=== PATIENT | male | born 1965 | race Caucasian/White ===

== ENCOUNTER 2017-09-26 23:35 | Inpatient (IN) | payer OTHER ==
[2017-09-26] MEDS ORDERED: Heparin 25,000 units/D5W 500 ML IV SCH (23:45)
[2017-09-26] MEDS ORDERED: Heparin 10,000 UNITS/1 ML VIAL ONE (23:51)
[2017-09-26] MEDS ORDERED: Morphine 10 MG/ML VIAL ONE (23:51)
--- NOTE | 2017-09-26 23:53 | RAD ---
CHEST ONE VIEW: History: Chest pain. FINDINGS: Cardiac silhouette is magnified by projection. Pulmonary vasculature is upper limits of normal. Medi astinum is midline. There is no confluent airspace consolidation or evidence of pneumothorax. Cardia c monitor leads overlie the chest. IMPRESSION: No active cardiopulmonary abnormalities are demonstrated. POS: [facility]
[2017-09-26 23:54] LABS: #Eosinphils 0.3 thou/uL (0.0-0.7); #Lymphocytes 3.5 thou/uL (1.20-3.40); #Monocytes 0.6 thou/uL (0.11-0.59); #Neutrophils 4.9 thou/uL (1.40-6.50); %Basophils 0.5 % (0.0-1.0); %Eosinophils 3.2 % (0.0-10.0); %Lymphocytes 37.7 % (21.0-51.0); %Monocytes 6.8 % (0.0-10.0); Hematocrit 42.7 % (42.0-52.0); Mean Platelet Volume 7.8 fL (7.4-10.4); White Blood Cell (WBC) Count 9.4 thou/uL (4.8-10.8)
[2017-09-27 00:12] LABS: Troponin I 0.028 ng/mL (< 0.028)
[2017-09-27 00:23] LABS: ALT (SGPT) 31 U/L (8-55); AST (SGOT) 35 U/L (5-34); Alkaline Phosphatase 100 U/L (40-150); Anion Gap 16 mmol/L (10-20); BUN (Urea Nitrogen) 19 mg/dL (8.9-20.6); Bilirubin, Total 0.2 mg/dL (0.2-1.2); CK (CPK) 248 U/L (30-200); Calc. Creatinine Clearance 0 mL/min (70-130); Calcium 9.3 mg/dL (7.8-10.44); Carbon Dioxide 17 mmol/L (22-29); Chloride 107 mmol/L (98-107); Estimated GFR-MDRD 78; Globulin 4.3 g/dL (2.4-3.5); Lipase 146 U/L (8-78); Protein, Total 8.3 g/dL (6.0-8.3)
[2017-09-27] MEDS ORDERED: Heparin 10,000 UNITS/1 ML VIAL ONE (01:01)
[2017-09-27] MEDS ORDERED: Fentanyl 100 MCG/2 ML VIAL ONE (01:02)
[2017-09-27] MEDS ORDERED: Clopidogrel Bisulfate 300 MG TAB ONE (01:36)
[2017-09-27] MEDS ORDERED: Sodium Chloride 0.9% 1,000 ML IV SCH (01:45)
[2017-09-27] MEDS ORDERED: Nitroglycerin 50 MG/250 ML BOT 250 ML IVPB PRN (02:16)
[2017-09-27 02:29] VITALS: BMI 30.3
[2017-09-27] MEDS: Morphine 4 MG/ML Carpuject SLOW IVP PRN ×4 (03:39→16:51)
--- NOTE | 2017-09-27 04:31 | HP ---
HISTORY OF PRESENT ILLNESS: Justyn Rider is a 51-year-old white male who apparently had myocardial infarction in [place] in 10/2015, underwent four stent placements in the LAD, diagonal system. He then had a myocardial infarction here in 10/2016 with total occlusion of the right coronary artery, underwent a placement of a drug-eluting stent-Synergy 2.75 x 28 mm. Then, in 12/2016, he apparently fell off a ladder, striking his head. He had intracranial bleed and had to undergo craniotomy and his Plavix was discontinued. He states that he occasionally has chest discomfort, but is very vague about that. Tonight at 9: 00 p.m., he had onset of severe chest pressure and in the emergency room and was found to have inferoposterior infarction. PAST MEDICAL HISTORY: Hypertension, hypercholesterolemia. No history of diabetes. intracranial hemorrhage. coronary artery disease with myocardial infarctions. MEDICATIONS: Medications at this time are unknown. He states that he takes an aspirin 325 daily and metoprolol is all he recalls. ALLERGIES: None. OPERATIONS: Craniotomy, placement of inferior vena cava filter for lower extremity deep venous thrombosis and multiple ORIFs. Coronary stent placement. SOCIAL HISTORY: He smoked 1 pack per a day. Does not drink. FAMILY HISTORY: Father had myocardial infarction, his first myocardial infarction at age 32 and at age 42 with infarction. REVIEW OF SYSTEMS: Otherwise, unremarkable. PHYSICAL EXAMINATION: VITAL SIGNS: Blood pressure 130/80, pulse 80, sinus rhythm on the monitor. HEENT: PERRL. NECK: Supple. CHEST: Clear. CARDIAC: S1 and S2 are normal without any S3, S4, or murmurs. ABDOMEN: Normal bowel sounds without tenderness. Abdomen is obese. EXTREMITIES: Revealed no clubbing, cyanosis, or edema. NEUROLOGIC: Grossly intact. SKIN: Warm and dry. LABORATORY AND DIAGNOSTIC DATA: EKG reveals inferoposterior infarction with ST elevation in II, III, aVF, and ST segment depression across the precordial leads. CBC is unremarkable. Sodium 135, potassium 4.6, chloride 107, carbon dioxide 17, BUN 19, creatinine 1.01, glucose 122. Troponin I 0.028. IMPRESSION: 1. Acute inferoposterior ST-elevation myocardial infarction. 2. History of myocardial infarction in 10/2015 with placement of stents in the diagonal and LAD in [place]. 3. ST-elevation myocardial infarction in 10/2016 here with placement of stent, drug-eluting in the proximal right coronary artery. 4. History of intracranial hemorrhage with craniotomy performed in [place] and Plavix was discontinued. 5. Hypertension. 6. Hypercholesterolemia. 7. Patient continues to smoke. 8. Positive family history. PLAN: The situation was discussed with the patient's . It was recommended he undergo emergent catheterization. Risks of this were discussed including , myocardial infarction, dye reaction, vascular injury, CVA, transfusion, limb loss, renal loss, etc. We also discussed the possibility of intracranial hemorrhage with the anticoagulants that need to be given. Risks of stent placement were discussed including , myocardial infarction, emergent CABG, restenosis, stent thrombosis, vessel perforation, etc. With his history of intracranial hemorrhage, I would only place a bare metal stent. EVELINA
[2017-09-27 07:27] LABS: Cholesterol 173 mg/dl (< 200 Desired)
[2017-09-27 07:55] LABS: Troponin I 53.472 ng/mL (< 0.028)
[2017-09-27] MEDS ORDERED: FLU VACC QS2017-18 36 mo. & older 0.5 ML SYRINGE IM ONE (09:00)
[2017-09-27] MEDS: Clopidogrel Bisulfate 75 MG TAB PO SCH (09:25)
--- NOTE | 2017-09-27 11:32 | CON ---
DATE OF CONSULTATION: 09/27/2017 HISTORY OF PRESENT ILLNESS: This is a 51-year-old gentleman with previous stents about 2 years ago to the LAD and circumflex system in [place], [place]. Last October, he underwent stenting for an ac atka occlusion of the right coronary artery with a minimal troponin bump. In December, he fell off a ladder with a closed head injury ultimately having a skull flap raced and then infectious complicat ions such that his skull could not be replaced. He states he was scheduled to have this, finally re paired this week prior to his being admitted last night for an acute myocardial infarction. The pat ient evidently had his antiplatelet agents stopped in December and had an IVC filter placed. He als o had a statin stopped. Unfortunately, the patient has enough residual from his brain trauma that I am not quite sure how reliable his information is. He was evidently on aspirin and metoprolol at h ome. He presented last night with an acute inferior posterior NM by EKG and was found to have subto farooq occlusion of the distal circumflex system that branched into 2 sizeable vessels. This was stent ed with Plavix loading and using a bare metal stent. The right coronary artery was chronically occl uded proximally and filled from left to right collaterals. LAD had a stenosis in the ostium of the LAD of about 70% as well as the diagonal with a 70% lesion and ramus with 70% lesion. Ejection frac tion could not be calculated as no LV gram was done. Echo is pending. PAST MEDICAL HISTORY: Includes hypertension, dyslipidemia, and longstanding smoking history which t he patient has continued to the present time. 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 FAMILY HISTORY: Positive for male family members with early heart disease. ALLERGIES: None known. PHYSICAL EXAMINATION: GENERAL: Alert, cooperative gentleman. He seems to confabulate when he answers questions. NECK: No carotid bruits. The patient has an area on the left frontoparietal area with a defect in his skull with intact skin and hair. CARDIAC: Heart rate 80. No murmurs. LUNGS: Clear anteriorly. Chest x-ray clear. ABDOMEN: Obese, soft, nontender, no masses, bruits or aneurysm. EXTREMITIES: He has palpable left posterior tibial pulse and a right dorsalis pedis pulse with no p eripheral edema. Radial pulses are intact. ASSESSMENT AND PLAN: The patient may benefit from a bypass to the right coronary artery, left anter ior descending, diagonal, and possibly ramus. Timing of the surgery, however, is up in the air at t his point with a sizable myocardial infarction overnight, loading dose of Plavix for bare metal sten t and unknown ventricular function.
--- NOTE | 2017-09-27 12:01 | PDOC.CTH ---
Cardiology Progress Note - Subjective No pain reported. Films reviewed from STEMI this morning with Dr. Hyman. Patient not a good historian. Awaiting echo results to assess LV function. Discussed case with Dr. Ramirez. ROS otherwise negative. - Objective Vital Signs Temp Pulse Resp Pulse Ox 09/27/17 08:00 97.8 F 09/27/17 07:55 97.8 F 85 18 99 09/27/17 05:00 98.4 F 09/27/17 02:30 97.8 F 87 20 100 Admit Weight 242 lb 8.136 oz Weight 242 lb 8.136 oz 09/26/17 09/27/17 09/28/17 06:59 06:59 06:59 Intake Total 38 530 Output Total 1250 400 Balance -1212 130 - Physical Examination General/Neuro: alert & oriented x3, NAD Neck: carotid US brisk, no JVD present Lungs: CTA, unlabored respirations Heart: PMI normal, RRR Abdomen: no HSM, NT/ND, soft Extremities: other: (2+ pulses, no edema) Other PE findings: Neuro: no focal motor defs; mentation slow - Telemetry Telemetry Rhythm: sinus rhythm - Labs Result Diagrams: 09/26/17 23:38 09/26/17 23:38 Troponin/CKMB CK-MB (CK-2) 243.4 ng/mL (0-6.6) H* 09/27/17 06:53 Troponin I 53.472 ng/mL (< 0.028) H* 09/27/17 06:53 - Assessment/Plan 1. CAD, s/p STEMI: PCI of LCx successful. RCA occluded at proximal edge of prior stent. Echo pending. Meds reloaded. Titrate as tolerated. Will evaluate for potential CABG in future. I am not sure that he is the best candidate given his cognitive deficits s/p craniotomy. 2. HTN: controlled. Monitor. 3. dyslipidemia: statin therapy for life recommended.
[2017-09-27 12:51] LABS: Critical Call CKMBM RESULT DECREASING; Critical Call Chem Troponin I RESULT DECREASING; Troponin I 44.347 ng/mL (< 0.028)
[2017-09-27] MEDS ORDERED: Iopamidol 370 76% 100 ML VIAL ONE (14:12)
[2017-09-27] MEDS ORDERED: Iopamidol 370 76% 50 ML VIAL FS ONE (14:12)
--- NOTE | 2017-09-27 16:45 | CON ---
DATE OF CONSULTATION: 09/27/2017 HISTORY OF PRESENT ILLNESS: Mr. Rider is a 51-year-old male. He says the last 2 years as he got close to [place], he would have a cardiac event and has been in the hospital having stents placed. He presented this admission early this morning with severe chest discomfort similar to past events. He subsequently has been admitted to the ICU. PAST MEDICAL HISTORY: Remarkable for, 1. Four coronary stents placed in 10/2015 and a stent placed in his right coronary in 10/2016 here and 12/2016, he fell off a ladder which led to a craniotomy. His antiplatelet drugs were discontinued. 2. History of hypertension. 3. History of lipid disorder. 4. He has a history of an inferior vena cava filter placement. 5. History of multiple orthopedic surgeries. FAMILY HISTORY: Family history of heart disease at an early age. His father in his 40s with an DC and had his first DC in his 30 and is a smoker, nondrinker. PHYSICAL EXAMINATION: GENERAL: He is in no distress. VITAL SIGNS: Blood pressure 140/93, heart rate 91, respiratory rate 22, oximetry is 90 on room air. HEAD AND NECK: Unremarkable. LUNGS: Clear. HEART: Regular rhythm. S1 and S2 are normal. ABDOMEN: Soft and nontender. EXTREMITIES: Without asymmetry. LABORATORY DATA: Sodium 135, potassium 4.6, chloride 107, bicarbonate 17, BUN 19, creatinine 1.01. White count 9.4, hemoglobin 14.9, platelets 226. IMPRESSION: 1. Status post emergent cardiac catheterization. Dr. Ramirez has been consulted. 2. History of inferior vena cava filter. 3. History of multiple coronary procedures in the past. 4. History of multiple orthopedic procedures in the past. We have to follow with the physicians caring for him. Critical care time 40 min. VEENAD
[2017-09-27 18:58] LABS: Critical Call CKMBM RESULT DECREASING; Critical Call Chem Troponin I RESULT DECREASING; Troponin I 30.053 ng/mL (< 0.028)
[2017-09-27] MEDS ORDERED: HYDROcodone/Acetaminophen 5/325 mg Tablet PO PRN (19:47)
[2017-09-27] MEDS: HYDROcodone/Acetaminophen 5/325 mg Tablet PO PRN (20:09)
[2017-09-27] MEDS: Atorvastatin Calcium 40 MG TAB PO SCH (20:09)
[2017-09-27] MEDS: Metoprolol Tartrate 25 MG TAB PO SCH (20:10)
--- NOTE | 2017-09-27 21:07 | EKG ---
Test Reason : POST CATH Blood Pressure : / mmHG Vent. Rate : 080 BPM Atrial Rate : 080 BPM P-R Int : 178 ms QRS Dur : 114 ms QT Int : 394 ms P-R-T Axes : 053 010 068 degrees QTc Int : 454 ms Normal sinus rhythm Abnormal ECG When compared with ECG of 01-NOV-2016 06:43, ST elevation now present in Inferior leads Nonspecific T wave abnormality now evident in Inferior leads Confirmed by ARI RANGEL, SAlejandro (4) on 09/27/2017 9:07:01 PM Referred By: Chloe MONIQUE Confirmed By:DR. Angel CHAPMAN MD
--- NOTE | 2017-09-27 21:37 | CCL ---
PROCEDURE: Coronary arteriography. Attempted intervention of the right coronary artery, stent placement in the circumflex. INDICATION: Inferoposterior STEMI. Patient was brought to cardiac catheterization lab from the emergency room. The right groin was prepped and draped in usual fashion. 1% lidocaine was infiltrated. A 6 Serbian sheath was placed into the right femoral artery. A 6 Serbian right 4 guide catheter was inserted since the patient 11 months ago had placement of a stent in the right coronary artery. This was found to be totally occluded at the proximal stent. A floppy choice wire would not cross this area. Attempts were made to cross with a mailman as well as a Whisper wire ; however, nothing would cross. A 1.2 mm balloon was placed area and dilated to attempt to open a channel; however, this still totally occluded. Also attempt was made with the [place] catheter and no clot was aspirated from the proximal portion of the stent. It was felt this possibly represented chronic total occlusion. Right 4 guide was removed and a 6 Serbian left 4 diagnostic catheter was inserted for left coronary arteriography. This was then removed and the 6 Serbian left 4 guide catheter was inserted. An extra support wire was advanced into the distal third obtuse marginal. The area was predilated with an Emerge 3.0 x 15 mm balloon. Rebel 3.5 x 24 mm stent was then positioned and deployed prior to the bifurcation of the third marginal from the remainder of the circumflex. Final result was excellent. Sheaths were sutured in place. During the procedure, patient received intravenous heparin for a goal of an ACT greater than 300. He also received Plavix 600 mg p.o., and fentanyl 25 mg IV. RESULTS: Coronary arteriography. 1. The right coronary was totally occluded proximally and this was unable with multiple wires and it was felt to be chronic total occlusion. The distal right coronary artery filled retrograde from the left. 2. Left main had a 40% stenosis. 3. The LAD had a 60-70% mid stenosis just proximal to the LAD stent. There was a 70% lesion in a high diagonal. The larger diagonal had a stent in place with a 70% stenosis. 4. The circumflex had a 99% mid to distal stenosis. INTERVENTION RESULTS: The right coronary was totally occluded and could not be opened. The mid to distal circumflex initially lesion was 99% and final lesion 0%. IMPRESSION: 1. Three-vessel coronary artery disease. 2. Chronic total occlusion of the right coronary artery. 3. Stent placed in the mid to distal circumflex. MTDD
[2017-09-28] MEDS: Morphine 4 MG/ML Carpuject SLOW IVP PRN ×2 (00:27→08:01)
[2017-09-28] MEDS: HYDROcodone/Acetaminophen 5/325 mg Tablet PO PRN ×3 (03:29→20:26)
[2017-09-28 03:59] LABS: #Eosinphils 0.1 thou/uL (0.0-0.7); #Monocytes 0.5 thou/uL (0.11-0.59); #Neutrophils 5.8 thou/uL (1.40-6.50); %Basophils 0.1 % (0.0-1.0); %Lymphocytes 23.6 % (21.0-51.0); %Monocytes 6.4 % (0.0-10.0); Hematocrit 45.9 % (42.0-52.0); Mean Platelet Volume 7.7 fL (7.4-10.4); Red Blood Cell (RBC) Count 4.91 mill/uL (4.70-6.10); White Blood Cell (WBC) Count 8.4 thou/uL (4.8-10.8)
[2017-09-28 04:49] LABS: ALT (SGPT) 49 U/L (8-55); AST (SGOT) 128 U/L (5-34); Alkaline Phosphatase 104 U/L (40-150); Anion Gap 14 mmol/L (10-20); BUN (Urea Nitrogen) 14 mg/dL (8.9-20.6); Bilirubin, Total 0.4 mg/dL (0.2-1.2); Calc. Creatinine Clearance 164 mL/min (70-130); Calcium 9.5 mg/dL (7.8-10.44); Carbon Dioxide 19 mmol/L (22-29); Chloride 105 mmol/L (98-107); Estimated GFR-MDRD Greater than 90; Protein, Total 8.1 g/dL (6.0-8.3)
[2017-09-28] MEDS: Metoprolol Tartrate 25 MG TAB PO SCH ×2 (08:00→20:07)
[2017-09-28] MEDS: Clopidogrel Bisulfate 75 MG TAB PO SCH (08:13)
[2017-09-28] MEDS ORDERED: Morphine 4 MG/ML VIAL ONE (13:52)
[2017-09-28] MEDS ORDERED: Morphine 10 MG/ML VIAL SLOW IVP PRN ×2 (14:00)
--- NOTE | 2017-09-28 16:23 | PRG ---
DATE OF SERVICE: 09/28/2017 OBJECTIVE: VITAL SIGNS: Justyn Rider remains in stable vital signs, afebrile and no significant change overa ll. Timing of surgery is up in the air per Dr. Ramirez's note. IMPRESSION: Myocardial infarction with coronary artery disease. He will likely require bypass. PLAN: Await surgery.
[2017-09-28] MEDS ORDERED: Morphine 4 MG/ML VIAL SLOW IVP PRN (18:36)
[2017-09-28] MEDS: Morphine 4 MG/ML VIAL SLOW IVP PRN ×2 (18:40→22:43)
[2017-09-28] MEDS: Atorvastatin Calcium 40 MG TAB PO SCH (20:07)
[2017-09-29] MEDS: Morphine 4 MG/ML VIAL SLOW IVP PRN ×5 (01:53→20:17)
[2017-09-29] MEDS: HYDROcodone/Acetaminophen 5/325 mg Tablet PO PRN ×4 (03:56→23:27)
[2017-09-29 04:09] LABS: #Eosinphils 0.3 thou/uL (0.0-0.7); #Lymphocytes 2.9 thou/uL (1.20-3.40); #Monocytes 0.7 thou/uL (0.11-0.59); #Neutrophils 3.5 thou/uL (1.40-6.50); %Basophils 0.6 % (0.0-1.0); %Eosinophils 3.8 % (0.0-10.0); %Lymphocytes 39.4 % (21.0-51.0); %Monocytes 8.8 % (0.0-10.0); Hematocrit 44.2 % (42.0-52.0); Mean Platelet Volume 7.6 fL (7.4-10.4); Red Blood Cell (RBC) Count 4.66 mill/uL (4.70-6.10); White Blood Cell (WBC) Count 7.3 thou/uL (4.8-10.8)
[2017-09-29 04:20] LABS: ALT (SGPT) 35 U/L (8-55); AST (SGOT) 63 U/L (5-34); Alkaline Phosphatase 97 U/L (40-150); Anion Gap 12 mmol/L (10-20); BUN (Urea Nitrogen) 19 mg/dL (8.9-20.6); Bilirubin, Total 0.4 mg/dL (0.2-1.2); Calc. Creatinine Clearance 133 mL/min (70-130); Calcium 9.3 mg/dL (7.8-10.44); Carbon Dioxide 20 mmol/L (22-29); Chloride 106 mmol/L (98-107); Estimated GFR-MDRD 76; Globulin 3.6 g/dL (2.4-3.5); Magnesium 2.3 mg/dL (1.6-2.6); Protein, Total 7.4 g/dL (6.0-8.3)
--- NOTE | 2017-09-29 07:54 | EKG ---
Test Reason : Blood Pressure : / mmHG Vent. Rate : 086 BPM Atrial Rate : 086 BPM P-R Int : 160 ms QRS Dur : 108 ms QT Int : 428 ms P-R-T Axes : 037 013 -60 degrees QTc Int : 512 ms Normal sinus rhythm Inferior infarct , age undetermined Prolonged QT Abnormal ECG When compared with ECG of 27-SEP-2017 02:03, Inferior infarct is now Present Inverted T waves have replaced nonspecific T wave abnormality in Inferior leads QT has lengthened Confirmed by ARI RANGEL, SAlejandro (4) on 09/29/2017 7:54:31 AM Referred By: [facility] Confirmed By:DR. Angel CHAPMAN MD
[2017-09-29 08:16] LABS: Troponin I 14.737 ng/mL (< 0.028)
[2017-09-29] MEDS: Clopidogrel Bisulfate 75 MG TAB PO SCH (08:37)
[2017-09-29] MEDS: Metoprolol Tartrate 25 MG TAB PO SCH ×2 (08:37→20:16)
--- NOTE | 2017-09-29 10:21 | PRG ---
DATE OF SERVICE: 09/29/2017 Mr. Rider has no complaints. He denies having any new chest discomfort. PHYSICAL EXAMINATION: VITAL SIGNS: He is afebrile, heart rate 80, respiratory rate 16, oximetry is 98. LUNGS: Clear. HEART: Regular rhythm. ABDOMEN: Soft. LABORATORY DATA: White count 7.3, hemoglobin 15, platelets 208. Sodium 134, potassium 4, chloride 1 06, bicarb 20, BUN 19, creatinine 1.03. Troponin this morning is 14.7 down from 30 yesterday afterno on. His EKG shows septal T-wave inversions of ST depression and inferior ST elevation, this may be a little more visible on today's EKG. IMPRESSION: Myocardial infarction. Surgery is apparently on hold for several months. He was telling me he has appointment with his neurosurgeon Tuesday about putting a synthetic skull cap in to cover his defect. He is also concerned that when he wakes up in the morning, his old wound is swollen, but this goes down when he stands up and stays down most of the day, but I have explained t o him that this is gravity related, that when he is supine he will have more protrusion related to in creased blood flow to the brain. In any event, he probably can put this appointment on hold since he cannot have surgery until all of this heart issues are addressed, everything going on with his skull is elective.
--- NOTE | 2017-09-29 12:04 | PDOC.CTH ---
Cardiology Progress Note - Subjective No new issues. Tolerating current meds. Reports mild chest pressure at times. No dyspnea or orthopnea reported. ROS otherwise negative. - ROS chest pain - Objective Vital Signs Temp Pulse Resp Pulse Ox 09/29/17 08:00 98.5 F 80 16 98 09/29/17 04:00 97.8 F Admit Weight 242 lb 8.136 oz Weight 242 lb 8.136 oz 09/28/17 09/29/17 09/30/17 06:59 06:59 06:59 Intake Total 1337 1877 300 Output Total 2850 1250 300 Balance -1513 627 0 - Physical Examination General/Neuro: alert & oriented x3, NAD Neck: carotid US brisk, no JVD present Lungs: CTA, unlabored respirations Heart: PMI normal, RRR Abdomen: no HSM, NT/ND, soft Extremities: other: (2+ pulses, no edema) Other PE findings: Neuro: no focal motor defs - Telemetry Telemetry Rhythm: sinus rhythm - Labs Result Diagrams: 09/29/17 03:48 09/29/17 03:48 Troponin/CKMB CK-MB (CK-2) 12.5 ng/mL (0-6.6) H* 09/29/17 07:42 Troponin I 14.737 ng/mL (< 0.028) H* 09/29/17 07:42 - Assessment/Plan 1. CAD, s/p STEMI: PCI of LCx successful. RCA occluded at proximal edge of prior stent. Echo pending. Meds reloaded. Titrate as tolerated. Will evaluate for potential CABG in future. I would prefer that we manage medically for 3-6 months and evaluate for CABG at that time. If LV function is stable and he remains symptom free and compensated, will opt for medical therapy. If not, then CABG path will be taken at that time. We have started IMDUR and RANEXA today. 2. HTN: controlled. Monitor. 3. dyslipidemia: statin therapy for life recommended.
--- NOTE | 2017-09-29 17:11 | EKG ---
Test Reason : Blood Pressure : / mmHG Vent. Rate : 079 BPM Atrial Rate : 079 BPM P-R Int : 154 ms QRS Dur : 110 ms QT Int : 444 ms P-R-T Axes : 027 000 -89 degrees QTc Int : 509 ms Age and gender specific ECG analysis Normal sinus rhythm Inferior-posterior infarct (cited on or before 28-SEP-2017) Prolonged QT * ACUTE MA * Consider right ventricular involvement in acute inferior infarct Abnormal ECG When compared with ECG of 28-SEP-2017 07:16, No significant change was found Confirmed by ARI RANGEL, DR. Ortiz ([id number]) on 09/29/2017 5:11:23 PM Referred By: WM DONALD Confirmed By:DR. Angel CHAPMAN MD
[2017-09-29] MEDS: Atorvastatin Calcium 40 MG TAB PO SCH (20:16)
[2017-09-30] MEDS: Morphine 4 MG/ML VIAL SLOW IVP PRN ×2 (02:32→08:06)
[2017-09-30] MEDS: HYDROcodone/Acetaminophen 5/325 mg Tablet PO PRN (06:08)
[2017-09-30] MEDS: Clopidogrel Bisulfate 75 MG TAB PO SCH (08:44)
[2017-09-30] MEDS: Metoprolol Tartrate 25 MG TAB PO SCH (08:45)
[2017-09-30 11:57] VITALS: TEMP 98.3
[2017-09-30 13:36] VITALS: BP 137/90
--- NOTE | 2017-09-30 15:49 | DIS ---
DATE OF ADMISSION: 09/27/2017 DATE OF DISCHARGE: 09/30/2017 PROCEDURES: Emergent heart catheterization with percutaneous coronary intervention and stenting of t he circumflex coronary artery. DISCHARGE DIAGNOSES: 1. Status post inferolateral wall ST segment elevation myocardial infarction, aborted with percutane ous coronary intervention and stenting of left circumflex coronary artery by Dr. Hyman. 2. Hypertension. 3. Dyslipidemia. 4. Chronic pain status post craniotomy. DISCHARGE MEDICATIONS: See medication reconciliation sheet. DISCHARGE INSTRUCTIONS: 1. The patient was instructed on taking medications as listed above. 2. Follow up with me in the outpatient setting in mid October. 3. Activity: As tolerated. 4. Heart healthy diet was recommended. HOSPITAL COURSE: Mr. Rider came in to [facility] on 09/27/2017 with an acute inferolateral wall RI. Emergent heart catheterization, coronary angiogram revealed occlusion of the mid left circumflex coronary artery, which was successfully treated with stenting, reestablishing nor mal flow. The right coronary artery stent that was placed last year was totally occluded chronically and unable to be crossed with a wire. His angiogram did show moderate to severe disease in the left anterior descending coronary artery. His ejection fraction was proven to be moderately depressed wi th an ejection fraction of 35%-40%. He was placed on appropriate medications, adding lisinopril for his LV dysfunction at 5 mg daily. His post-procedural course was uneventful with no evidence of post -RI complications. He was stable in all regards on the day of discharge. He was discharged in stabl e condition on 09/30/2017 with the medications and instructions as listed above.
== END 2017-09-30 13:22 | disposition home or self-care (01) | DRG 249 ==
LOC: ERS 23:35 → SDC/OP 23:54 → CCU 09-27 00:12 → 2SW 09-29 12:14
PROVIDERS: ADMIT Internal Medicine Cardiovascular Disease; ATTEND Internal Medicine Cardiovascular Disease
PROC: 4A023N8 Measurement of Cardiac Sampling and Pressure, Bilateral, Percutaneous Approach (ICD-10-PCS; principal; 2017-09-27)
PROC: 02703DZ Dilation of Coronary Artery, One Artery with Intraluminal Device, Percutaneous Approach (ICD-10-PCS; 2017-09-27)
PROC: B2111ZZ Fluoroscopy of Multiple Coronary Arteries using Low Osmolar Contrast (ICD-10-PCS; 2017-09-27)
DX: I24.0 Acute coronary thrombosis not resulting in myocardial infarction (principal); I10 Essential (primary) hypertension; I25.2 Old myocardial infarction; Z95.5 Presence of coronary angioplasty implant and graft; I25.10 Atherosclerotic heart disease of native coronary artery without angina pectoris; E78.00 Pure hypercholesterolemia, unspecified; Z79.82 Long term (current) use of aspirin; Z86.718 Personal history of other venous thrombosis and embolism; Z95.828 Presence of other vascular implants and grafts; F17.210 Nicotine dependence, cigarettes, uncomplicated; G89.29 Other chronic pain; I25.119 Atherosclerotic heart disease of native coronary artery with unspecified angina pectoris
CPT/HCPCS: 36415; 71010; 80053; 80061; 82550; 82553; 83690; 83735; 84484; 85025; 85347; 92920; 92928; 93005; 93010; 93306; 93454; 93798; 96374; 96375; C1725; C1757; C1769; C1876; C1887; J1644; J2270; J3010